=== PATIENT | female | born 1990 | race Caucasian/White ===

== ENCOUNTER → 2017-03-27 | Outpatient (CLI) | payer OTHER ==
[~2017-03-27] MED LIST: OXYC-106 PO
--- NOTE | 2017-03-27 10:53 | DIAGNOSTIC IMAGING REPORT ---
R ANKLE MIN 3 VIEWS ROUTINE CLINICAL HISTORY: Right ankle pain COMPARISON: None. DISCUSSION: No fractures or dislocations are visualized. There are no erosive or destructive changes. IMPRESSION: No bony abnormalities identified. Electronically signed by: Jarret Renee M.D. 03/27/2017 10:52 AM Dictated Date/Time: 03/27/2017 10:52 AM
--- NOTE | 2017-03-27 10:54 | DIAGNOSTIC IMAGING REPORT ---
R FOOT MIN 3 VIEWS ROUTINE CLINICAL HISTORY: Right foot pain COMPARISON: None. DISCUSSION: No acute fractures or dislocations are visualized. There are no erosive or destructive changes. IMPRESSION: No bony abnormalities identified. Electronically signed by: Jarret Renee M.D. 03/27/2017 10:53 AM Dictated Date/Time: 03/27/2017 10:53 AM
== END | disposition home or self-care (01) ==
LOC: C.RAD1850 10:38
PROVIDERS: ATTEND Nurse Practitioner Family
DX: M25.571 Pain in right ankle and joints of right foot (principal); M79.671 Pain in right foot

== ENCOUNTER → 2017-04-03 | Outpatient (CLI) | payer OTHER ==
--- NOTE | 2017-04-03 09:25 | DIAGNOSTIC IMAGING REPORT ---
R LOWER EXT JOINT WITHOUT CLINICAL HISTORY: 27 years-old Female presenting with R ANKLE PAIN,SWELLING AFTER WORK FALL. TECHNIQUE: Multisequence, multiplanar MR imaging of the right ankle was performed without the use of intravenous contrast. IV contrast: None. COMPARISON: Plain radiographs of the right ankle from 03/27/2017. FINDINGS: Localizer images: Unremarkable. No bony edema. Small ankle joint effusion. Articular cartilage preserved. Ankle mortise intact. Anterior and posterior tibiofibular ligaments intact. Stripping of the insertion of the anterior talofibular ligament, which has a wavy appearance, concerning for at least high-grade partial tear. Increased signal intensity within the posterior talofibular ligament and calcaneofibular ligament also noted although fibers intact. Deltoid ligament demonstrates increased signal intensity and partial disruption (series 7 image 15), consistent with partial tear. Anterior compartment demonstrates normal tibialis anterior, extensor hallucis longus, and extensor digitorum longus. Posterior compartment demonstrates minimal fluid tracking along the tibialis posterior and flexor digitorum longus. Normal signal intensity within these tendons. Normal flexor hallucis longus. Mild superficial edema along the course of the peroneal longus and brevis immediately inferior to the lateral malleolus. The tendons themselves maintain normal signal intensity and morphology. IMPRESSION: 1. Findings consistent with partial tears of the medial and lateral ligamentous structures, including the deltoid ligament and anterior talofibular ligaments. Grade 1 ligamentous sprain of the posterior talofibular and calcaneofibular ligaments. 2. Ankle joint effusion. Electronically signed by: Krish Barragan M.D. 04/03/2017 9:24 AM Dictated Date/Time: 04/03/2017 9:05 AM
== END | disposition home or self-care (01) ==
LOC: C.MRI 08:01
PROVIDERS: ATTEND Nurse Practitioner Family
DX: M25.471 Effusion, right ankle (principal); S93.411A Sprain of calcaneofibular ligament of right ankle, initial encounter; S93.431A Sprain of tibiofibular ligament of right ankle, initial encounter; X58.XXXA Exposure to other specified factors, initial encounter

== ENCOUNTER 2018-10-15 07:15 | Inpatient (IN) ==
[2018-10-15] MEDS ORDERED: LACTATED RINGER'S 1,000 ML IV PRN (08:04)
[2018-10-15] MEDS ORDERED: OXYTOCIN 30 UNITS/500 ML BAG IV PRN (08:04)
--- NOTE | 2018-10-15 08:12 | History & Physical Report ---
Date of Service October 15, 2018 Assessment & Plan (1) Intrahepatic cholestasis of : 28 yo at 39 wks, scheduled IOL for ICP VSS Afebrile FHR reassuring GBS negative h/o drug use and Subutex, HCV Plan: admit, monitor, labs, cervical ripening with Cervidil Agrees with Urine drug screening History of Present Illness Primary Care Provider: Arpit Sandoval MD Patient is a 28 yo at 39 wks , scheduled IOL for ICP She had occasional itching on and off and her bile acids were elevated at 15 and scheduled for IOL Her has been uncomplicated except 1) She has h/o Chronic HCV, normal LFT's and negative HCV RNA 2) h/o Drug use, was on Subutex but quit before this 3) Hypothyroidism 4) h/o smoking, quit early She has been having mild irregular ctxs No LOF/VB +FM Allergies Allergy/AdvReac Type Severity Reaction Status Date / Time No Known Allergies Allergy Unverified 12/06/15 20:04 Home Medications Home Medications Medication Instructions Recorded Confirmed Type OXYCODONE/ACETAMINOPHEN 10MG/325MG 1 tab PO PRN #0 tab 12/06/15 History (PERCOCET 10MG/325MG) Patient History Medical History Hx of chronic hepatitis fractured leg as a child [place] teeth extracted [employer] History No h/o STD's, no chlamydia/ GC/ HSV Review of Systems All systems reviewed & are unremarkable except as noted in HPI & below Physical Exam Constitutional: WD/WN, vitals as above well developed and well nourished Gastrointestinal (Abdomen): Abd: soft, NT, Gravid Genitourinary: VE: Cervix 2cm/ 40%/ -3, posterior Monitoring External Monitor NST: Reactive
[2018-10-15 08:22] LABS: Hematocrit (blood only) 37.5 % (37-47); Mean Corpuscular Volume 87.2 fL (80-100); Mean Platelet Volume 10.2 fL (7.4-10.4); Platelet Count 170 K/uL (130-400); RDW Coefficient of Variation 13.6 % (11.5-14.5); RDW Standard Deviation 43.4 fL (36.4-46.3); White Blood Count 8.37 K/uL (4.8-10.8)
[2018-10-15] MEDS ORDERED: DINOPROSTONE 10 MG INSERT PV ONE ×2 (08:30→22:38)
[2018-10-15 08:42] LABS: Mean Corpuscular Hgb Conc 34.7 g/dL (32-36)
--- NOTE | 2018-10-15 09:00 | Obstetrical Progress Note ---
Date of Service October 15, 2018 Subjective Cervidil is placed in posterior fornix FHR categ I Patient does not feel any ctxs Continue to monitor Physical Exam Vital Signs (Past 24 Hours): Last Vital Signs Temp 36.9 C 10/15/18 07:47 Pulse 73 10/15/18 07:47 Resp 20 10/15/18 07:47 BP 133/84 10/15/18 07:47
[2018-10-15 09:05] LABS: Amphetamines+Metham, Urine Neg (Neg); Barbiturates, Urine Neg (Neg); Benzodiazepine, Urine Neg (Neg); Cocaine, Urine Neg (Neg); MDMA (Ecstacy), Urine Neg (Neg); Methadone, Urine Neg (Neg); Opiate, Urine Neg (Neg); Phencyclidine, Urine Neg (Neg)
[2018-10-15 09:07] LABS: Albumin Level 2.8 gm/dl (3.4-5.0); BUN Creatinine Ratio 13.5 (10-20); Calcium 9.1 mg/dl (8.5-10.1); Creatinine Clr Calc Pharmacy 113.5 ml/min; Est GFR (African American) 124.6; Est GFR (Non-African American) 107.5; Potassium 3.8 mmol/L (3.5-5.1)
[2018-10-15 09:10] LABS: Albumin Globulin Ratio 0.7 (0.9-2); Bilirubin,Total 0.2 mg/dl (0.2-1); Total Protein 6.8 gm/dl (6.4-8.2)
--- NOTE | 2018-10-15 16:23 | Obstetrical Progress Note ---
Date of Service October 15, 2018 Subjective Patient is reevaluated She feels mild ctxs, not painful No LOF/VB +FM's Labs UDS WNL FHR categ I [place] cxs q 2-4 min Plan to continue with cervical ripening, will remove Cervidil at 2056 All questions were answered Physical Exam Vital Signs (Past 24 Hours): Last Vital Signs Temp 36.6 C 10/15/18 15:00 Pulse 58 L 10/15/18 14:58 Resp 18 10/15/18 15:00 BP 122/73 10/15/18 14:58
[2018-10-15] MEDS: LACTATED RINGER'S 1,000 ML IV SCH (19:43)
[2018-10-15] MEDS: BUTORPHANOL TARTRATE 2 MG/ML VIAL IV PRN (19:47)
[2018-10-15] MEDS ORDERED: ACETAMINOPHEN 325 MG TAB PO PRN (23:17)
--- NOTE | 2018-10-15 23:20 | Obstetrical Progress Note ---
Date of Service October 15, 2018 Subjective Patient ate dinner and ready for 2nd cervidil VSS Afebrile FHR categ I [place]: ctxs q 3-5 min, patient does not feel none on them She c/o Hip pain, took Stadol for hip pain earlier. Will Rx Tylenol for hip pain Continue to monitor Physical Exam Vital Signs (Past 24 Hours): Last Vital Signs Temp 36.9 C 10/15/18 20:45 Pulse 62 10/15/18 23:07 Resp 18 10/15/18 20:45 BP 122/77 10/15/18 23:07
[2018-10-16] MEDS: LACTATED RINGER'S 1,000 ML IV SCH ×4 (04:09→20:50)
[2018-10-16] MEDS: LEVOTHYROXINE SODIUM 25 MCG TABLET PO SCH (06:24)
[2018-10-16] MEDS ORDERED: LACTATED RINGER'S 1,000 ML IV PRN ×2 (11:26→21:37)
[2018-10-16] MEDS ORDERED: OXYTOCIN 30 UNITS/500 ML BAG IV PRN (11:26)
[2018-10-16] MEDS: BUTORPHANOL TARTRATE 2 MG/ML VIAL IV PRN (18:46)
[2018-10-16] MEDS ORDERED: BUPIVACAINE 0.25% 30 ML VIAL ONE (21:25)
[2018-10-16] MEDS ORDERED: fentaNYL citrate 100 MCG/2 ML VIAL ONE (21:25)
[2018-10-16] MEDS ORDERED: ePHEDrine sulfate 50 MG/ML AMP ONE (21:25)
[2018-10-16] MEDS ORDERED: fentaNYL 2MCG/ML ROPIV 1.25MG/ML 100 ML BAG EPI ONE (21:26)
[2018-10-16] MEDS ORDERED: NALOXONE HCL 0.4 MG/1 ML VIAL/CARP IV PRN (21:37)
[2018-10-16] MEDS ORDERED: NALBUPHINE HCL INJ 10 MG/ML AMP IV PRN (21:37)
[2018-10-16] MEDS ORDERED: ePHEDrine sulfate 50 MG/ML AMP IV PRN (21:37)
[2018-10-16] MEDS ORDERED: DiphenhydrAMINE HCL 50 MG/ML VIAL IV PRN (21:37)
[2018-10-16] MEDS ORDERED: NALOXONE HCL 1 MG in SODIUM CHLORIDE 0.9% 1000ML 1,000 ML IV PRN (21:37)
--- NOTE | 2018-10-16 21:37 | Anesthesiology Consultation ---
Date of Service October 16, 2018 Assessment & Plan Chart Review Chart Review: Acceptable Risk for Labor Epidural Consults Requested none History Height/Weight Height: 5 ft 3 in Weight: 83.007 kg Allergies Allergy/AdvReac Type Severity Reaction Status Date / Time No Known Allergies Allergy Verified 10/15/18 09:13 Medications Home Medications Medication Instructions Recorded Confirmed Last Taken PNV cmb#95-ferrous fumarate-FA 1 tab PO DAILY 10/15/18 10/15/18 10/15/18 07:30 [] levothyroxine 25 mcg PO DAILY 10/15/18 10/15/18 10/15/18 07:00 Active Medications Generic Name Dose Route Start Last Admin Trade Name Freq PRN Reason Stop Dose Admin Butorphanol Tartrate 1 mg 10/15/18 19:32 10/16/18 18:46 Stadol IV 11/14/18 19:31 1 mg Q3HWA PRN Administration Pain Lactated Ringer's 1,000 mls @ 150 mls/hr 10/15/18 08:15 10/16/18 20:50 Lr IV 10/17/18 08:14 150 mls/hr .Q6H40M IGNACIO Administration Oxytocin 30 units in 500 mls @ 12 mls/hr 10/16/18 11:26 10/16/18 20:20 Pitocin IV 10/18/18 11:25 0.72 units/hr .Q24H PRN 12 mls/hr Labor Induction/Augmentation Titration Protocol 0.72 UNITS/HR Levothyroxine Sodium 25 mcg 10/16/18 06:30 10/16/18 06:24 Synthroid PO 11/15/18 06:29 25 mcg DAILYBB IGNACIO Administration Past Medical History Medical History History of drug use previously used heroin, prescription narcotics and marijuana - last used in 2013 Hx of chronic hepatitis fractured leg as a child Hypothyroid takes 25mcg synthroid daily [place] teeth extracted Social History Smoking Status: Former smoker tobacco type: cigarettes Do You Dip or Chew Tobacco: No Hx Alcohol Use: No Hx Substance Use: Yes (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 states she quits years ago, pt. state she last used 2013, Physical Exam Vital Signs Last Vital Signs Temp 36.9 C 10/16/18 19:15 Pulse 57 L 10/16/18 19:59 Resp 18 10/16/18 19:15 BP 125/68 10/16/18 19:59 Testing Laboratory Results 10/15/18 08:11 10/15/18 08:38
[2018-10-17] MEDS: LACTATED RINGER'S 1,000 ML IV SCH ×4 (00:40→18:26)
[2018-10-17] MEDS: LEVOTHYROXINE SODIUM 25 MCG TABLET PO SCH (06:41)
[2018-10-17] MEDS: fentaNYL 2MCG/ML ROPIV 1.25MG/ML 100 ML BAG EPI PRN ×2 (07:05→14:40)
[2018-10-17] MEDS ORDERED: DIPHTHERIA/TETANUS/PERTUSSIS 0.5 ML SYR/VIAL IM ONE (21:44)
[2018-10-17] MEDS ORDERED: BISACODYL 10 MG SUPP PR PRN (21:44)
[2018-10-17] MEDS ORDERED: HYDROCORTISONE ACETATE 25 MG SUPP PR PRN (21:44)
[2018-10-17] MEDS ORDERED: BENZOCAINE 20% AER SPR 82.5 GM CAN EXT PRN (21:44)
[2018-10-17] MEDS ORDERED: OXYCODONE/ACETAMINOPHEN 5mg/325mg TAB PO PRN (21:44)
[2018-10-17] MEDS ORDERED: OXYTOCIN 30 UNITS/500 ML BAG IV PRN (21:44)
[2018-10-17] MEDS ORDERED: ACETAMINOPHEN W/CODEINE #3 1 TAB PO PRN (21:44)
[2018-10-17] MEDS ORDERED: SUPERCREAM 0.870% 15 GM JAR EXT PRN (21:44)
[2018-10-17] MEDS: IBUPROFEN 600 MG TAB PO PRN (22:20)
--- NOTE | 2018-10-17 22:39 | Delivery Summary ---
DATE OF OPERATION: 10/17/2018 DELIVERY NOTE: The patient was brought in for induction of labor at about 39+ weeks for elevated bile acids. Blood type is A positive, group B strep negative. She was started with the tape. When I came on duty on Thursday, we switched her to IV Pitocin. We gave Pitocin to her all day and at times we had to turn back the Pitocin because of a nonreassuring heart rate tracing. Later that evening, I ruptured the membranes. She remained on Pitocin off and on at times they had to turn it off. The Pitocin was actually off at the time she delivered, she had slow but steady progress. She dilated up slowly, the head came down. She crowned the baby on her own. After delivery of the head, suctioned through the mouth and the nose. There was a tight nuchal cord which had to be clamped in 2 places and then cut. Then there was some difficulty delivering the shoulders, had to pull up and I had to cut a midline episiotomy to free the posterior shoulder then the shoulders were delivered. Infant was delivered. It was taken over to be resuscitated. My own estimation 1 and 5 minute Apgars were 4 and 7 respectively. Cord blood was taken. With IV Pitocin running, the placenta was removed intact, it was sent for exam. Inspection of the perineum revealed a second-degree laceration of the perineum. This was approximated with a running 2-0 Vicryl, which approximated the vaginal mucosa out and to beyond the hymenal ring. A deep suture was used to approximate the bulbocavernosus muscle. Two interrupted sutures to approximate the perineal body along with a separate one, which was used to bolster the rectal sphincter capsule. Then we did another suture of the bulbocavernosus and they did a running subcuticular suture to approximate the skin edges. Following this, vag exam including rectovaginal examination revealed no hematoma formation or sponges in the vagina. The patient tolerated the procedure well. Estimated blood loss 200 mL. I attest to the content of the Intraoperative Record and any orders documented therein. Any exception s are noted below.
[2018-10-18] MEDS: ACETAMINOPHEN 325 MG TAB PO PRN (00:14)
[2018-10-18] MEDS: IBUPROFEN 600 MG TAB PO PRN ×5 (04:19→21:10)
[2018-10-18 06:12] LABS: Hematocrit (blood only) 33.8 % (37-47); Hemoglobin 11.5 g/dL (12.0-16.0); Mean Corpuscular Volume 88.3 fL (80-100); Mean Platelet Volume 10.5 fL (7.4-10.4); Platelet Count 150 K/uL (130-400); RDW Coefficient of Variation 13.8 % (11.5-14.5); RDW Standard Deviation 44.8 fL (36.4-46.3); Red Blood Count 3.83 M/uL (4.2-5.4); White Blood Count 15.29 K/uL (4.8-10.8)
[2018-10-18] MEDS: LEVOTHYROXINE SODIUM 25 MCG TABLET PO SCH (06:21)
--- NOTE | 2018-10-18 07:15 | Anesthesia Procedure Note ---
Date of Service October 18, 2018 Anesthesia Post Epidural Note Vital Signs Vital Signs: Temp Pulse Resp BP Pulse Ox 36.7 C 57 L 18 146/86 H 97 10/18/18 03:00 10/18/18 03:00 10/18/18 03:00 10/18/18 03:00 10/18/18 03:00 Pain Intensity Bilateral Episiotomy/Laceration: Pain Intensity: 3 Notes Mental Status: alert / awake / arousable and participated in evaluation Nausea / Vomiting: adequately controlled Pain: adequately controlled Airway Patency, RR, SpO2: stable & adequate BP & HR: stable & adequate Hydration State: stable & adequate Neuraxial Anesthesia: was administered and sensory block is resolving Anesthetic Complications: no major complications apparent and Pt Satisfied with anesthetic care Epidural: Removed without complications and With tip intact
[2018-10-18] MEDS: FERROUS SULFATE 325 MG TAB PO SCH (08:02)
[2018-10-18] MEDS: PRENATAL VITAMIN 1 TAB PO SCH (08:04)
[2018-10-18] MEDS: DOCUSATE SODIUM 100 MG CAP PO SCH ×2 (08:05→20:52)
--- NOTE | 2018-10-18 08:10 | Obstetrical Progress Note ---
Date of Service October 18, 2018 Subjective Patient is seen and examined. She feels well, no complaints. Ambulating without dizziness Voiding without difficulty Tolerating regular diet with out N&V Bleeding is minimal No fever/ chills/ CP/ SOB/ N&V/ Leg pain Breast feeding without problems Vital Signs Temp Pulse Pulse Resp BP BP Pulse Ox 10/18/18 03:00 36.7 C 57 L 18 146/86 H 97 10/18/18 00:10 36.9 C 60 16 125/65 10/17/18 23:46 59 L 125/65 10/17/18 23:16 66 130/62 10/17/18 22:45 77 118/65 10/17/18 22:30 85 130/90 10/17/18 22:15 68 116/62 10/17/18 22:00 70 107/57 L 10/17/18 21:49 83 121/62 10/17/18 21:34 89 125/68 10/17/18 21:23 152 H 95 10/17/18 21:21 112 H 94 10/17/18 21:19 136 H 136/93 10/17/18 21:17 114 H 96 10/17/18 21:15 20 10/17/18 21:11 111 H 78 L 10/17/18 21:09 102 H 94 10/17/18 21:06 100 H 95 10/17/18 21:05 108 H 145/65 H 10/17/18 21:04 101 H 93 10/17/18 21:01 100 H 96 10/17/18 21:00 36.8 C 20 10/17/18 20:56 105 H 96 10/17/18 20:52 78 85 L 10/17/18 20:51 82 97 10/17/18 20:49 72 122/59 L 10/17/18 20:47 76 83 L 10/17/18 20:42 75 97 10/17/18 20:39 77 86 L 10/17/18 20:37 74 99 10/17/18 20:35 81 130/84 10/17/18 20:32 69 100 10/17/18 20:30 20 10/17/18 20:27 69 100 10/17/18 20:22 69 100 10/17/18 20:19 66 130/59 L 10/17/18 20:17 65 100 10/17/18 20:12 67 100 10/18/18 Range/Units 05:49 WBC 15.29 H (4.8-10.8) K/uL RBC 3.83 L (4.2-5.4) M/uL Hgb 11.5 L (12.0-16.0) g/dL Hct 33.8 L (37-47) % MCV 88.3 (80-100) fL MCH 30.0 (25-34) pg MCHC 34.0 (32-36) g/dL RDW Std Deviation 44.8 (36.4-46.3) fL RDW Coeff of [place] 13.8 (11.5-14.5) % Plt Count 150 (130-400) K/uL MPV 10.5 H (7.4-10.4) fL PE: General: Alert, orientedx3, NAD Abd: soft, NT, fundus firm, below Umbilicus Perineum intact, Lochia rubra minimal Ext; NT, no edema AP: 28 yo s/p , ppd# 1, after long labor VSS Afebrile doing well CMC now, CBC in am Continue routine care All questions were answered Physical Exam Vital Signs (Past 24 Hours): Last Vital Signs Temp 36.7 C 10/18/18 03:00 Pulse 57 L 10/18/18 03:00 Resp 18 10/18/18 03:00 BP 146/86 H 10/18/18 03:00 Pulse Ox 97 10/18/18 03:00
[2018-10-18 09:02] LABS: Albumin Level 2.1 gm/dl (3.4-5.0); BUN Creatinine Ratio 12.3 (10-20); Calcium 8.5 mg/dl (8.5-10.1); Creatinine Clr Calc Pharmacy 126.8 ml/min; Est GFR (African American) 138.9; Est GFR (Non-African American) 119.9; Potassium 3.6 mmol/L (3.5-5.1)
[2018-10-18 09:05] LABS: Albumin Globulin Ratio 0.6 (0.9-2); Bilirubin,Total 0.2 mg/dl (0.2-1); Globulin 3.4 gm/dl (2.5-4.0); Total Protein 5.5 gm/dl (6.4-8.2)
[2018-10-18] MEDS: BISACODYL 5 MG TABEC PO SCH ×2 (20:52→21:19)
[2018-10-19] MEDS: LEVOTHYROXINE SODIUM 25 MCG TABLET PO SCH (06:11)
[2018-10-19] MEDS: IBUPROFEN 600 MG TAB PO PRN (06:14)
--- NOTE | 2018-10-19 08:29 | Obstetrical Progress Note ---
Date of Service October 19, 2018 Assessment & Plan (1) normal course: PPD #1 pt doing well disch home with instructions Subjective Ambulation: ambulating normally Voiding: no voiding problems Passing Gas:: Yes Diet Tolerance:: regular diet Lochia:: Small Feeding Type:: breast feeding Review of Systems All systems reviewed & are unremarkable except as noted in HPI & below Physical Exam Vital Signs (Past 24 Hours) Last Vital Signs Temp 36.4 C L 10/18/18 23:15 Pulse 62 10/18/18 23:15 Resp 18 10/18/18 23:15 BP 127/65 10/18/18 23:15 Pulse Ox 98 10/18/18 23:15 Constitutional WD/WN, vitals as above well developed and well nourished Eyes PERRL, conjunctivae normal, anicteric sclerae Neck trachea midline, no thyromegaly Respiratory normal respiratory effort, lungs clear to auscultation Auscultation: no crackles, no rales and no wheezes Cardiovascular RRR, no murmur, no edema Gastrointestinal (Abdomen) normal bowel sounds, soft, nontender, no hepatosplenomegaly Uterus is below umbilicus Musculoskeletal no cyanosis or clubbing, extremities motor strength 5/5 Skin no rashes, warm and dry Neurologic patellar DTR's 2+ bilat, sensation intact Psychiatric A+Ox3, euthymic affect Genitourinary normal external appearance
[2018-10-19 09:05] LABS: Basophils # (auto) 0.02 K/uL (0-0.2); Basophils % (auto) 0.2 %; Eosinophils # (auto) 0.16 K/uL (0-0.5); Eosinophils % (auto) 1.7 %; Hematocrit (blood only) 35.3 % (37-47); Hemoglobin 11.9 g/dL (12.0-16.0); Immature Granulocytes # (auto) 0.06 K/uL (0.00-0.02); Immature Granulocytes % (auto) 0.7 %; Lymphocytes # (auto) 1.55 K/uL (1.2-3.4); Lymphocytes % (auto) 16.8 %; Mean Corpuscular Hgb Conc 33.7 g/dL (32-36); Mean Corpuscular Volume 88.9 fL (80-100); Mean Platelet Volume 10.5 fL (7.4-10.4); Monocytes # (auto) 0.65 K/uL (0.11-0.59); Neutrophils # (auto) 6.79 K/uL (1.4-6.5); Neutrophils % (auto) 73.6 %; Nucleated RBC # (auto) 0.04 K/uL (0-0); Nucleated RBC % (auto) 0.4 %; Platelet Count 165 K/uL (130-400); RDW Standard Deviation 45.7 fL (36.4-46.3); Red Blood Count 3.97 M/uL (4.2-5.4); White Blood Count 9.23 K/uL (4.8-10.8)
[2018-10-19] MEDS: DOCUSATE SODIUM 100 MG CAP PO SCH (09:05)
[2018-10-19] MEDS: FERROUS SULFATE 325 MG TAB PO SCH (09:05)
[2018-10-19] MEDS: ACETAMINOPHEN 325 MG TAB PO PRN (09:05)
[2018-10-19] MEDS: PRENATAL VITAMIN 1 TAB PO SCH (09:05)
--- OUTSIDE RECORDS SUMMARY | 2018-10-28 10:38 | External Medical Summary | Continuity of Care Document ---
:1990 Author Name Raysa Daugherty, Provider Address Unavailable Unavailable , Care Team Providers Name Role Phone Unavailable Unavailable Unavailable PCP, UNKNOWN Unavailable Unavailable Problems Active medical history not documented Allergies and Adverse Reactions Allergy history not documented Medications Medications not documented Procedures Procedures not documented Immunizations Immunizations not documented Plan of Treatment Planned Observations Planned Goals not documented Results No Known Results Results not documented
== END 2018-10-19 13:10 | disposition home or self-care (01) | DRG 805 ==
LOC: 4S1 07:28 → 4S2 10-18 00:46